=== PATIENT | male | born 1960 | race Caucasian/White ===

== ENCOUNTER 2017-02-01 11:24 | Emergency (ER) | payer SELFPAY ==
[~2017-02-01] VITALS: Ht 190.5 cm; Wt 85.7 kg
[2017-02-01 11:35] VITALS: BP 153/83
[2017-02-01] MEDS ORDERED: ACETAMINOPHEN ES 500 MG TABLET PO ONE (12:00)
[2017-02-01] MEDS ORDERED: ACETAMINOPHEN ES 500 MG TABLET ONE (12:32)
== END 2017-02-01 13:43 | disposition home or self-care (01) ==
LOC: ER 11:29
DX: M25.561 Pain in right knee (principal); M54.5 Low back pain; I25.10 Atherosclerotic heart disease of native coronary artery without angina pectoris; E11.9 Type 2 diabetes mellitus without complications; N18.3 Chronic kidney disease, stage 3 (moderate); Z79.4 Long term (current) use of insulin; V49.49XA Driver injured in collision with other motor vehicles in traffic accident, initial encounter; Y93.89 Activity, other specified; Y92.413 State road as the place of occurrence of the external cause; Y99.8 Other external cause status
CPT/HCPCS: 71010; 72040; 72100; 73562; 99284; A4606; Z7610